=== PATIENT | male | born 1945 | race Caucasian/White ===

== ENCOUNTER 2022-06-10 09:41 | Emergency (ER) | payer OTHER ==
--- OUTSIDE RECORDS SUMMARY | 2022-06-10 09:44 | XMS REPORT | Continuity of Care Document ---
:1945 Author Organization [facility] t Address [address] [address] [place] [address] Care Team Providers Name Role Phone Unknown, Physician Primary Care Physician Unavailable Lata Treviño MD Attending Clinician Payers Payer Name Policy Type Policy Number Effective Date Expiration Date [facility] [id number] 2015 MEDICARE 00:00:00 Problems Condition Condition Condition Status Onset Resolution Last Treating Co mments Source Name Details Category Date Date Treatment Clinician Date Melanoma Melanoma Disease Active [facility] in situ of in situ of 02-10 He alth right right 00:00: upper upper 00 extremity extremity including including shoulder shoulder Allergies, Adverse Reactions, Alerts This patient has no known allergies or adverse reactions. Social History Social Habit Start Date Stop Date Quantity Comments Source Exposure to 2022-02-21 2022-03-03 Not sure [facility] SARS-CoV-2 (event) 00:00:00 13:47:00 Alcohol intake 2022-03-03 2022-03-03 Ex-drinker [facility] 00:00:00 00:00:00 (finding) Tobacco use and 2022-02-10 2022-02-10 Smokeless tobacco [facility] exposure 00:00:00 00:00:00 non-user Sex Ass[birth year] At [birth year] [facility] 00:00:00 00:00:00 Smoking Status Start Date Stop Date Source Never smoked tobacco [facility] Medications Ordered Filled Start Stop Current Ordering Indication Dosage Frequency Signature Comments Components Source Medication Medication Date Date Medication? Clinician (SIG) Name Name primidone 2021-02 Yes 50mg Take 50 mg [facility] (Mysoline) 2-26 by [facility] 50 MG 00:00: every tablet 00 night. primidone 2021-02 Yes 50mg Take 50 mg [facility] (Mysoline) 2-26 by mouth [facility] 50 MG 00:00: every tablet 00 night. primidone 2021-1 Yes 50mg Take 50 mg [facility] (Mysoline) 2-26 by mouth [facility] 50 MG 00:00: every tablet 00 night. primidone 2021-1 Yes 50mg Take 50 mg [facility] (Mysoline) 2-26 by mouth [facility] 50 MG 00:00: every tablet 00 night. atorvastati 2021- Yes 20mg QD Take 20 mg [facility] n (Lipitor) 2-01 by mouth 1 He alth 20 MG 00:00: (one) time tablet 00 each day. atorvastati 2021- Yes 20mg QD Take 20 mg [facility] n (Lipitor) 2-01 by mouth 1 He alth 20 MG 00:00: (one) time tablet 00 each day. atorvastati 2021- Yes 20mg QD Take 20 mg [facility] n (Lipitor) 2-01 by mouth 1 He alth 20 MG 00:00: (one) time tablet 00 each day. atorvastati 2021-02 Yes 20mg QD Take 20 mg [facility] n (Lipitor) 2-01 by mouth 1 He alth 20 MG 00:00: (one) time tablet 00 each day. cephalexin 2021-02 Yes 500mg Q.5D Take 500 [facility] (Keflex) 1-16 mg [facility] 500 MG 00:00: mouth in capsule 00 the morning and 500 mg in the evening. TAKE 1 CAPSULE BY MOUTH TWICE DAILY FOR 10 DAYS. cephalexin 2021- Yes 500mg Q.5D Take 500 [facility] (Keflex) 1-16 mg [facility] 500 MG 00:00: mouth in capsule 00 the morning and 500 mg in the evening. TAKE 1 CAPSULE BY MOUTH TWICE DAILY FOR 10 DAYS. cephalexin 2021-02 Yes 500mg Q.5D Take 500 [facility] (Keflex) 1-16 mg [facility] 500 MG 00:00: mouth in capsule 00 the morning and 500 mg in the evening. TAKE 1 CAPSULE BY MOUTH TWICE DAILY FOR 10 DAYS. cephalexin 2021-02 Yes 500mg Q.5D Take 500 [facility] (Keflex) 1-16 mg [facility] 500 MG 00:00: mouth in capsule 00 the morning and 500 mg in the evening. TAKE 1 CAPSULE BY MOUTH TWICE DAILY FOR 10 DAYS. Vital Signs Vital Name Observation Time Observation Value Comments Source Systolic blood pressure 2022-03-03 20:10:00 150 mm[Hg] [facility] Diastolic blood pressure 2022-03-03 20:10:00 68 mm[Hg] [facility] Heart rate 2022-03-03 20:10:00 111 /min [facility] Body temperature 2022-03-03 20:10:00 36.67 Julissa [facility] height 2022-03-03 20:10:00 166.4 cm [facility] weight 2022-03-03 20:10:00 90.266 [facility] BMI 2022-03-03 20:10:00 32.61 kg/m2 [facility] Systolic blood pressure 2022-02-24 19:33:00 157 mm[Hg] [facility] Diastolic blood pressure 2022-02-24 19:33:00 69 mm[Hg] [facility] Heart rate 2022-02-24 19:33:00 80 /min [facility] Body temperature 2022-02-24 19:33:00 36.11 Julissa [facility] Body height 2022-02-24 19:33:00 166.4 cm [facility] weight 2022-02-24 19:33:00 90.719 kg [facility] BMI 2022-02-24 19:33:00 32.78 kg/m2 [facility] Systolic blood pressure 2022-02-10 18:55:00 154 mm[Hg] [facility] Diastolic blood pressure 2022-02-10 18:55:00 71 mm[Hg] [facility] Heart rate 2022-02-10 18:55:00 71 /min [facility] Body temperature 2022-02-10 18:55:00 36.28 Jul[facility] Body height 2022-02-10 18:55:00 166.4 cm [facility] Body weight 2022-02-10 18:55:00 90.357 [facility] BMI 2022-02-10 18:55:00 32.64 kg/m2 [facility] Oxygen saturation in 2022-02-10 18:55:00 95 /min [facility] Arterial blood by Pulse oximetry Procedures Procedure Date / Time Performed Performing Clinician Sourc e SKIN EXCISION 2022-02-24 21:22:45 Lata Treviño [facility] Encounters Start End Encounter Admission Attending Care Care Encounter Source Date/Time Date/Time Type Type Clinicians Facility Department ID 2022-03-16 Outpatient [facility] [id number] [place] 09:30:32 [id number] [facility] 2022-03-09 Outpatient [facility] [id number] 05:07:22 [id number] [facility] 2022-03-02 Outpatient [facility] [id number] 15:56:15 [id number] [facility] 2022-02-22 Outpatient [facility] [id number] [place] 14:19:53 [id number] [facility] 2022-02-12 Outpatient [facility] [id number] [place] 06:59:34 [id number] [facility] 2022-02-10 Outpatient [facility] [id number] [place] 12:22:53 [id number] [facility] 2022-02-09 Outpatient [facility] [id number] [place] 16:13:00 [id number] [facility] 2022-01-22 Outpatient [facility] [id number] [place] 13:23:24 [id number] [facility] 2022-03-03 2022-03-03 Office [facility]y [facility] [id number] [place] 14:00:00 14:42:21 Visit GARTH Jones [id number] [facility] [place] [facility] [id number] [facility] [id number] 2022-02-24 2022-02-24 Procedure Cristy [facility] [id number] [place] 13:30:00 14:44:35 Visit GARTH Jones [id number] [facility] [place] [facility] [id number] [facility] [id number] 2022-02-17 2022-02-17 Outpatient CRISTY [facility] [id number] [place] 14:30:00 14:30:00 Cruzito JONES 2022-02-10 2022-02-10 Office Cristy [facility]TP [id number] [place] 13:00:00 13:52:17 Visit GARTH Jones [id number] [facility] [place] [facility] [id number] [facility] [id number] Results This patient has no known results.
--- NOTE | 2022-06-10 10:48 | RAD REPORT ---
EXAM DESCRIPTION: RADTib Fib Left06/10/2022 10:12 am CLINICAL HISTORY: Left leg pain status post injury FINDINGS: No fracture is seen Periosteal deposition is present within distal fibula. This likely is chronic and may be related to p rior inflammation or trauma. Follow-up x-ray in 3 months recommended to assess stability.
--- NOTE | 2022-06-10 11:29 | EDPHYS ---
Physician Documentation [facility] Name: Trent Garcia Age: 76 yrs Sex: Male : 1945 Arrival Date: 06/10/2022 Time: 09:41 Bed 10 Private MD: Harriet Anthony ED Physician Jaiem Lance HPI: 06/10 10:04 This 76 yrs old Male presents to ER via Unassigned with complaints of Leg Pain. kb 10:04 The patient presents with pain. The complaints affect the left rodas. Context: The kb problem was sustained at home, resulted from stepping up a step, the patient can fully bear weight, the patient is able to ambulate, Problem is a result from a previous injury: No. Onset: The symptoms/episode began/occurred just prior to arrival. Modifying factors: The symptoms are alleviated by nothing. the symptoms are aggravated by "moving a certain way". Associated signs and symptoms: The patient has no apparent associated signs or symptoms. Treatment prior to arrival includes: no previous treatment. Severity of symptoms: At their worst the symptoms were moderate, in the emergency department the symptoms are unchanged. The patient has not experienced similar symptoms in the past. The patient has not recently seen a physician. Pt states he stepped up a step and felt and heard a pop in left lower leg. States he is able to walk and is free of pain unless he turns his leg in a particular way. . Historical: - Allergies: 10:07 No Known Allergies; aa5 - PMHx: 10:15 None; aa5 - PSHx: 10:15 Right hip; L hip replacement; L arm; L leg; aa5 ROS: 10:05 Constitutional: Negative for fever, chills, and weight loss. kb 10:05 MS/extremity: Positive for pain, of the left rodas. 10:05 All other systems are negative. Exam: 10:05 Constitutional: This is a well developed, well nourished patient who is awake, alert, kb and in no acute distress. Head/Face: Normocephalic, atraumatic. ENT: Moist Mucous membranes Cardiovascular: Regular rate and rhythm with a normal S1 and S2. No gallops, murmurs, or rubs. No pulse deficits. Respiratory: Respirations even and unlabored. No increased work of breathing. Talking in full sentences Skin: Warm, dry with normal turgor. Normal color. MS/ Extremity: Pulses equal, no cyanosis. Neurovascular intact. Full, normal range of motion. Neuro: Awake and alert, GCS 15, oriented to person, place, time, and situation. Moves all extremities. Normal gait. Vital Signs: 10:03 BP 134 / 74; Pulse 78; Resp 18 S; Temp 97.8(TE); Pulse Ox 98% on R/A; aa5 MDM: 09:49 Patient medically screened. kb 10:06 Differential diagnosis: closed fracture, tendonitis, sprain, strain. Data reviewed: kb vital signs, nurses notes. 11:28 Counseling: I had a detailed discussion with the patient and/or guardian regarding: the kb historical points, exam findings, and any diagnostic results supporting the discharge/admit diagnosis, radiology results, the need for outpatient follow up, a orthopedic surgeon, to return to the emergency department if symptoms worsen or persist or if there are any questions or concerns that arise at home. 06/10 09:54 Order name: Tib Fib Left XRAY; Complete Time: 10:50 kb 06/10 11:29 Order name: Shahriar Wrap; Complete Time: 12:17 kb Administered Medications: No medications were administered Disposition: 12:49 Co-signature as Attending Physician, Jaime Lance MD I reviewed the patient's care rn provided by the Advanced Practice Provider and agree with the diagnosis and treatment plan. Disposition Summary: 06/10/22 11:28 Discharge Ordered Location: Home kb Condition: Stable kb Diagnosis - Pain in left lower leg kb Followup: kb - With: Emergency Department - When: As needed - Reason: Worsening of condition Followup: kb - With: Private Physician - When: 2 - 3 days - Reason: Recheck today's complaints, Continuance of care, Re-evaluation by your physician Discharge Instructions: - Discharge Summary Sheet kb - Musculoskeletal Pain kb Forms: - Medication Reconciliation Form kb - Thank You Letter kb - Antibiotic Education kb - Prescription Opioid Use kb Signatures: Dispatcher [employer] Bernadette Shook, HERITAGE CONSULTANT-C HERITAGE CONSULTANT-Jaime Zaman MD MD rn Calderon, Audri RN RN aa5
--- NOTE | 2022-06-10 11:29 | ER ---
Nurse's Notes [facility] Name: Trent Garcia Age: 76 yrs Sex: Male : 1945 Arrival Date: 06/10/2022 Time: 09:41 Bed 10 Private MD: Harriet Anthony Diagnosis: Pain in left lower leg Presentation: 06/10 10:03 Chief complaint: Patient states: felt a pop in left lower leg when walking up steps. aa5 10:03 Coronavirus screen: At this time, the client does not indicate any symptoms associated aa5 with coronavirus-19. Ebola Screen: Patient denies travel to an Ebola-affected area in the 21 days before illness onset. Initial Sepsis Screen: Does the patient meet any 2 criteria? No. Patient's initial sepsis screen is negative. Does the patient have a suspected source of infection? No. Patient's initial sepsis screen is negative. Risk Assessment: Do you want to hurt yourself or someone else? Patient reports no desire to harm self or others. Onset of symptoms was June 10, 2022. 10:03 Acuity: STACEY 4 aa5 10:03 Method Of Arrival: Ambulatory aa5 Historical: - Allergies: 10:07 No Known Allergies; aa5 - PMHx: 10:15 None; aa5 - PSHx: 10:15 Right hip; L hip replacement; L arm; L leg; aa5 Assessment: 10:23 Reassessment: Patient is alert, oriented x 3, equal unlabored respirations, skin aa5 warm/dry/pink. Awaiting x-ray results, pt aware of wait time. Vital Signs: 10:03 BP 134 / 74; Pulse 78; Resp 18 S; Temp 97.8(TE); Pulse Ox 98% on R/A; aa5 ED Course: 09:43 Patient arrived in ED. mr 09:44 Harriet Anthony is Private Physician. mr 09:49 [facility] Tse [facility]C [facility] kb 09:49 Jaime Lance MD is Attending Physician. kb 10:03 Arm band placed on Patient placed in an exam room, on a stretcher. aa5 10:08 Triage completed. aa5 10:14 Tib Fib Left XRAY In Process Unspecified. EDMS 12:17 Adrienne Palacio, RN is Primary Nurse. iw Administered Medications: No medications were administered Outcome: 11:28 Discharge ordered by . kb 12:17 Patient left the ED. iw Signatures: Dispatcher [employer] EDBernadette Ewing, KELLIE MONROE-Lillian Chavez mr Adrienne Palacio, RN RN Alissa Vieira RN RN aa5
[2022-06-10 12:21] VITALS: BP 134/74; TEMP 97.8; O2SAT 98
== END 2022-06-10 12:17 | disposition home or self-care (01) ==
LOC: ER 09:41
DX: M79.662 Pain in left lower leg (principal); Z96.642 Presence of left artificial hip joint
CPT/HCPCS: 99282

== ENCOUNTER 2024-09-30 07:02 | Emergency (ER) | payer OTHER ==
[2024-09-30] MEDS ORDERED: ONDANSETRON 4 MG/2 ML VIAL ONE (07:14)
[2024-09-30] MEDS ORDERED: MORPHINE 4 MG/ML SYR ONE (07:15)
--- OUTSIDE RECORDS SUMMARY | 2024-09-30 07:20 | XMS REPORT | Continuity of Care Document ---
Author Name Unknown Address [address] [facility] [address] [place] [address] [facility] [place] Address [address] [facility] [address] [place] [address] Care Team Providers Care Header Operator Name Role Phone JerryRicky Cassi Primary Care Physician [phone] PUJA GRIFFITH Attending Clinician Unavailable Puja Griffith MD Attending Clinician [phone] Brannon Silva RN Attending Clinician Unavailabl e Doctor Unassigned, [place] Attending Clinician U kayce 2, [facility] Attending Clinician Unavailable Petey Lu MD Attending Clinician [phone] BETTY POWELL Attending Clinician Unavailable Сергей MEYER, Sendadolfo K.H. 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 08-24 00:00: 00 [facility] Acute back pain with sciatica, left Acute back pain with sciatica, left Disease Active 07-16 00:00: 00 [facility] 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 Disease Active 07-16 00:00: 00 [facility] 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 Disease Active 07-16 00:00: 00 [facility] Right hip pain Right hip pain Disease Active 07-16 00:00: 00 [facility] 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 07-16 00:00: 00 [facility] Melanoma in situ of right upper extremity including shoulder Melanoma in situ of right upper extremity including shoulder Disease Active 02-10 00:00: 00 [facility] Allergies, Adverse Reactions, Alerts Allergy Name Allergy Type Status Severity Reaction(s) Onset Date Inactive Date Treating Clinician Comments Source NO KNOWN ALLERGIE S Drug Class Active [facility] Social History Social Habit Start Date Stop Date Quantity Comments Source Gender identity [facility] intake 2022-12-15 00:00:00 2022-12-15 00:00:00 Ex-drinker (finding) [facility] History of Social function 2022-10-28 00:00:00 2022-10-28 00:00:00 [facility] Tobacco use and exposure 2022-10-21 00:00:00 2022-10-21 00:00:00 Smokeless tobacco non-user [facility] Exposure to SARS-CoV-2 (event) 2022-07-06 00:00:00 2022-07-16 08:28:00 Not sure [facility] Sex Assigned At 1945 00:00:00 1945 00:00:00 [facility] Smoking Status Start Date Stop Date Source Never smoked tobacco [facility] Tobacco smoking consumption unknown [facility] Medications Ordered Medication Name Filled Medication Name Start Date Stop Date Current Medication? Ordering Clinician Indication Dosage Frequency Signature (SIG) Comments Components Source FENTanyl PF (SUBLIMAZE (PF)) injection 25 mcg 10-28 14:32: 27 Yes 25ug 25 mcg, Slow IV Push, Q5MIN PRN, 4 doses, Starting on Chayito 10/28/22 at 0932, Until Discontinu ed, Routine, Pain (scale 4-6), PACU [facility] ondansetron (ZOFRAN (PF)) injection 4 mg 10-28 14:32: 27 Yes 4mg 4 mg, Slow IV Push, PRN, 1 dose, Starting on Chayito 10/28/22 at 0932, Until Discontinu ed, Routine, Nausea and Vomiting (N/V), PACU [facility] lidocaine (XYLOCAINE) 2 % jelly URO-JET 10-28 13:20: 00 Yes PRN, Starting on Chayito 10/28/22 at 0820, Until Discontinu ed, Routine, Intra-op [facility] BUPivacaine liposome (PF) (EXPAREL (PF)) 1.3 % (13.3 mg/mL) injection 10-28 13:04: 00 Yes PRN, Starting on Chayito 10/28/22 at 0804, Until Discontinu ed, Routine, Intra-op [facility] bupivacaine (preserv free) 0.5% (SENSORCAIN E MPF) injection 10-28 13:04: 00 Yes PRN, Starting on Chayito 10/28/22 at 0804, Until Discontinu ed, Routine, Intra-op [facility] lactated ringers IV infusion 1,000 mL 10-28 11:30: 00 10-28 11:41 :00 No 1000mL at 42 mL/hr, 1,000 mL, IV Infusion, ONCE, 1 dose, On Chayito 10/28/22 at 0630, Routine, DSU Pre-op [facility] vancomycin (VANCOCIN) 1,000 mg in NaCl 0.9% (NS) 250 mL VIAL-MATE IV piggyback 10-28 11:20: 49 10-28 12:40 :00 No [id number] 1000mg 1,000 mg, IV Piggyback, O.R. HOLDING ONCE, 1 dose, Starting on Chayito 10/28/22 at 0620, Until Chayito 10/28/22 at 2359, Administer over 60 Minutes, 250 mL
Reas on for Anti-Infec tive: Surgical Prophylaxi s
Surgi kori Prophylaxi s: Genitourin kelsie
Dur ation of therapy: within 24 hours of surgery [facility] ibuprofen 600 mg tablet 10-28 00:00: 00 Yes [id number] 600mg Take 1 tablet by mouth every 6 (six) hours as needed (Alternate with Tylenol). [facility] gabapentin 300 mg capsule 10-28 00:00: 00 Yes [id number] 300mg Take 1 capsule by mouth in the morning and 1 capsule at noon and 1 capsule in the evening. [facility] acetaminoph en (TYLENOL 8 HOUR) 650 mg CR tablet 10-28 00:00: 00 Yes [id number] 650mg Take 1 tablet by mouth every 8 (eight) hours as needed for Pain (Alternate with Ibuprofen every 3 hours). [facility] cephALEXin (KEFLEX) 500 mg capsule 10-28 00:00: 00 11-03 04:59 :00 No [id number] 500mg Take 1 capsule by mouth 4 (four) times daily for 5 days. [facility] Nitrofurant oin&Nit. Macrocryst (MACROBID) 100 mg capsule 10-22 00:00: 00 10-28 04:59 :00 No [id number] 100mg Take 1 capsule by mouth in the morning and 1 capsule in the evening. Do all this for 5 days. [facility] alprostadiL (EDEX) injection 25 mcg 08-24 21:45: 00 08-24 21:46 :00 No [id number] 25ug [facility] NaCl 0.9% (NS) injection 6 mL 08-24 21:45: 00 08-24 21:47 :00 No [id number] 6mL [facility] phenylephri ne (VAZCULEP) injection 0.2 mg 08-24 21:45: 00 08-24 21:47 :00 No [id number] .2mg [facility] phenylephri ne (VAZCULEP) injection 0.2 mg 08-24 21:45: 00 08-24 21:47 :00 No [id number] 200ug 0.2 mg (200 mcg), Intravenou s, ONCE, 1 dose, On Tue08/24/22 at 1645, Routine [facility] omeprazole 20 mg capsule 08-11 00:00: 00 Yes [id number] 20mg Take 1 capsule by mouth in the morning. [facility] omeprazole OTC (PriLOSEC OTC) 20 MG EC tablet 07-16 00:00: 00 08-16 04:59 :00 No [id number] 20mg QD Take 1 tablet (20 mg total) by mouth 1 (one) time each day. Do not crush, chew, or split. Take w/ NSAID [facility] Diclofenac Sodium (Voltaren) 1 % external gel 07-16 00:00: 08-16 04:59 :00 No [id number] 3D Apply topically 3 (three) times a day if needed (pain). APPLY 4 GRAMS TO AFFECTED AREA DO NOT EXCEED 16 GRAMS QD [facility] meloxicam (Mobic) 7.5 MG tablet 07-16 00:00: 00 08-16 04:59 :00 No [id number] 7.5mg Take 1 tablet (7.5 mg total) by mouth 1 (one) time each day if needed (pain). [facility] methylPREDN ISolone (Medrol Dospak) 4 MG tablets 07-16 00:00: 00 07-17 04:59 :00 No [id number] 4mg Take 1 tablet (4 mg total) by mouth 1 (one) time for 1 dose. Use as directed by package instructio maisha [facility] primidone 50 mg tablet 06-09 00:00: 00 Yes 50mg Take 1 tablet by mouth at bedtime. [facility] primidone 50 mg tablet 06-09 00:00: 00 Yes 25mg Take 0.5 tablets by mouth in the morning. [facility] atorvastati n 20 mg tablet 05-13 00:00: 00 Yes 20mg Take 1 tablet by mouth in the morning. [facility] tamsulosin 0.4 mg 24 hr capsule 05-13 00:00: 00 Yes .4mg Take 1 capsule by mouth in the morning. [facility] primidone (Mysoline) 50 MG tablet 2021-02 00:00: 00 Yes 50mg Take 50 mg by mouth every night. [facility] atorvastati n (Lipitor) 20 MG tablet 2021-02 00:00: 00 Yes 20mg QD Take 20 mg by mouth 1 (one) time each day. [facility] cephalexin (Keflex) 500 MG capsule 2021-02 00:00: 00 Yes 500mg Q.5D Take 500 mg by mouth in the morning and 500 mg in the evening. TAKE 1 CAPSULE BY MOUTH TWICE DAILY FOR 10 DAYS. [facility] Vital Signs Vital Name Observation Time Observation Value Comments S anibal Systolic blood pressure 2022-12-15 16:45:00 130 mm[Hg] [facility] Diastolic blood pressure 2022-12-15 16:45:00 68 mm[Hg] [facility] Heart rate 2022-12-15 16:45:00 77 /min [facility] acute [facility] Body temperature 2022-12-15 16:45:00 36.56 Julissa [facility] Respiratory rate 2022-12-15 16:45:00 18 /min [facility] Body height 2022-12-15 16:45:00 167.6 cm [facility] Body weight 2022-12-15 16:45:00 83.008 kg [facility] BMI 2022-12-15 16:45:00 29.54 kg/m2 [facility] Oxygen saturation in Arterial blood by Pulse oximetry 2022-12-15 16:45:00 96 /min [facility] Systolic blood pressure 2022-12-01 16:33:00 138 mm[Hg] [facility] Diastolic blood pressure 2022-12-01 16:33:00 89 mm[Hg] [facility] Heart rate 2022-12-01 16:33:00 76 /min [facility] Body temperature 2022-12-01 16:33:00 36.89 Julissa [facility] Respiratory rate 2022-12-01 16:33:00 18 /min [facility] Body height 2022-12-01 16:33:00 167.6 cm [facility] Body weight 2022-12-01 16:33:00 83.008 kg [facility] BMI 2022-12-01 16:33:00 29.54 kg/m2 [facility] Oxygen saturation in Arterial blood by Pulse oximetry 2022-12-01 16:33:00 96 /min [facility] Heart rate 2022-11-03 18:46:00 77 /min [facility] Body temperature 2022-11-03 18:46:00 36.44 Julissa [facility] Respiratory rate 2022-11-03 18:46:00 18 /min [facility] Body height 2022-11-03 18:46:00 167.6 cm [facility] Body weight 2022-11-03 18:46:00 82.101 kg [facility] BMI 2022-11-03 18:46:00 29.21 kg/m2 [facility] Oxygen saturation in Arterial blood by Pulse oximetry 2022-11-03 18:46:00 96 /min [facility] Systolic blood pressure 2022-10-28 17:10:00 135 mm[Hg] [facility] Diastolic blood pressure 2022-10-28 17:10:00 63 mm[Hg] [facility] Heart rate 2022-10-28 17:10:00 71 /min [facility] Respiratory rate 2022-10-28 17:10:00 16 /min [facility] Oxygen saturation in Arterial blood by Pulse oximetry 2022-10-28 17:10:00 98 /min [facility] Body temperature 2022-10-28 14:25:00 36.5 Julissa [facility] Body height 2022-10-28 11:35:00 167.6 cm [facility] Body weight 2022-10-28 11:35:00 82.101 [facility] 2022-10-28 11:35:00 29.21 kg/m2 [facility] Body height 2022-10-28 11:35:00 167.6 cm [facility] Body weight 2022-10-28 11:35:00 82.101 kg [facility] BMI 2022-10-28 11:35:00 29.21 kg/m2 [facility] Systolic blood pressure 2022-10-28 11:32:00 141 mm[Hg] [facility] Diastolic blood pressure 2022-10-28 11:32:00 74 mm[Hg] [facility] Heart rate 2022-10-28 11:32:00 72 [facility]min [facility] Body temperature 2022-10-28 11:32:00 37.06 Julissa [facility] Respiratory rate 2022-10-28 11:32:00 17 /min [facility] Oxygen saturation in Arterial blood by Pulse oximetry 2022-10-28 11:32:00 98 /min [facility] Systolic blood pressure 2022-10-20 19:00:00 137 mm[Hg] [facility] Diastolic blood pressure 2022-10-20 19:00:00 65 mm[Hg] [facility] Heart rate 2022-10-20 19:00:00 71 /min [facility] Body temperature 2022-10-20 19:00:00 36.56 Julissa [facility] Respiratory rate 2022-10-20 19:00:00 18 /min [facility] Body height 2022-10-20 19:00:00 167.6 cm [facility] Body weight 2022-10-20 19:00:00 85.276 kg [facility] BMI 2022-10-20 19:00:00 30.34 kg/m2 [facility] Oxygen saturation in Arterial blood by Pulse oximetry 2022-10-20 19:00:00 96 /min [facility] Body height 2022-10-15 13:49:00 [facility].6 [facility] Body weight 2022-10-15 13:49:00 89.812 [facility] BMI 2022-10-15 13:49:00 [facility] 2022-09-02 20:49:00 134 mm[Hg] [facility] Diastolic blood pressure 2022-09-02 20:49:00 83 mm[Hg] [facility] Heart rate 2022-09-02 20:49:00 77 /min [facility] Body height 2022-09-02 20:49:00 167.6 cm [facility] Body weight 2022-09-02 20:49:00 85.957 kg [facility] BMI 2022-09-02 20:49:00 30.59 kg/m2 [facility] Oxygen saturation in Arterial blood by Pulse oximetry 2022-09-02 20:49:00 97 /min [facility] Systolic blood pressure 2022-08-24 18:58:00 136 mm[Hg] [facility] Diastolic blood pressure 2022-08-24 18:58:00 68 mm[Hg] [facility] Heart rate 2022-08-24 18:58:00 67 /min [facility] Body temperature 2022-08-24 18:13:00 36.67 Julissa [facility] Respiratory rate 2022-08-24 18:13:00 18 /min [facility] Body height 2022-08-24 18:13:00 167.6 cm [facility] Body weight 2022-08-24 18:13:00 82.101 kg [facility] BMI 2022-08-24 18:13:00 29.21 kg/m2 [facility] Oxygen saturation in Arterial blood by Pulse oximetry 2022-08-24 18:13:00 96 /min [facility] BMI 2022-07-16 13:45:00 31.96 kg/m2 [facility] Body height 2022-07-16 13:45:00 167.6 cm [facility] Body weight 2022-07-16 13:45:00 [facility] pressure 2022-07-14 19:34:00 139 mm[Hg] [facility] Diastolic blood pressure 2022-07-14 19:34:00 78 mm[Hg] [facility] Heart rate 2022-07-14 19:34:00 82 /min [facility] Res[facility] rate 2022-07-14 19:34:00 18 /min [facility] Body height 2022-07-14 19:34:00 167.6 cm [facility] Body weight 2022-07-14 19:34:00 84.823 kg [facility] BMI 2022-07-14 19:34:00 30.18 kg/m2 [facility] Oxygen saturation in Arterial blood by Pulse oximetry 2022-07-14 19:34:00 96 /min [facility] Systolic blood pressure 2022-03-03 20:10:00 150 mm[Hg] [facility] Diastolic blood pressure 2022-03-03 20:10:00 68 mm[Hg] [facility] Heart rate 2022-03-03 20:10:00 111 /min [facility] Body temperature 2022-03-03 20:10:00 36.67 Julissa [facility] Body height 2022-03-03 20:10:00 [facility].4 cm [facility] Body weight 2022-03-03 20:10:00 90.266 [facility] BMI 2022-03-03 20:10:00 32.61 kg[facility]m2 [facility] Systolic blood pressure 2022-02-24 19:33:00 157 mm[Hg] [facility] Diastolic blood pressure 2022-02-24 19:33:00 69 mm[Hg] [facility] Heart rate 2022-02-24 19:33:00 80 /min [facility] Body temperature 2022-02-24 19:33:00 36.11 Julissa [facility] Body height 2022-02-24 19:33:00 166.4 cm [facility] Body weight 2022-02-24 19:33:00 90.719 [facility] BMI 2022-02-24 19:33:00 32.78 kg/m2 [facility] Systolic blood pressure 2022-02-10 18:55:00 154 mm[Hg] [facility] Diastolic blood pressure 2022-02-10 18:55:00 71 mm[Hg] [facility] Heart rate 2022-02-10 18:55:00 71 /min [facility] alth Body temperature 2022-02-10 18:55:00 36.28 Julissa [facility] Body height 2022-02-10 18:55:00 166.4 cm [facility] Body weight 2022-02-10 18:55:00 90.357 [facility] BMI 2022-02-10 18:55:00 32.64 kg/m2 [facility] Oxygen saturation in Arterial blood by Pulse oximetry 2022-02-10 18:55:00 95 /min [facility] Procedures Procedure Date / Time Performed Performing Clinician Source POCT URINALYSIS AUTO 2022-12-15 16:48:00 Tomi Griffith [facility] POCT URINALYSIS AUTO 2022-11-03 18:48:00 Tomi Griffith [facility] PENILE PROSTHESIS INSERTION 2022-10-28 12:28:00 Puja Griffith [facility] INSURANCE CORRESPONDENCE 2022-10-21 05:01:00 Regan nunez Unassigned, [place] [facility] INSURANCE CORRESPONDENCE 2022-09-03 05:01:00 Regan nunez Unassigned, [place] [facility] HB ECG ROUTINE & RHYTHM STRIP 2022-09-02 20:43:21 Azar Kimbrough [facility] EXTERNAL PROVIDER - ADC REFERRAL 2022-09-01 05:01:00 Doctor Unassigned, [place] [facility] INSURANCE CORRESPONDENCE 2022-09-01 05:01:00 Regan nunez Unassigned, [place] [facility] INSURANCE CORRESPONDENCE 2022-09-01 05:01:00 Regan nunez Unassigned, [place] [facility] DISCLOSURE AND CONSENT, MEDICAL AND SURGICAL PROCEDURES 2022-08-24 05:01:00 Doctor Unassigned, [place] [facility] CONSENT/REFUSAL FOR DIAGNOSIS AND TREATMENT 2022-07-14 19:17:45 Doctor Unassigned, [place] [facility] POCT URINALYSIS AUTO 2022-07-14 00:00:00 Tomi Griffith [facility] SKIN EXCISION 2022-02-24 21:22:45 Crys Lam [facility] Encounters Start Date/Time End Date/Time Encounter Type Admission Type Attending [facility] Care Department Encounter ID Source 2022-07-18 08:26:51 Outpatient [facility] [id number] [facility] 2022-07-06 09:45:33 Outpatient [facility] [id number] [facility] 2022-03-16 09:30:32 Outpatient [facility] [id number] [facility] 2022-03-09 05:07:22 Outpatient [facility] [id number] [facility] 2022-03-02 15:56:15 Outpatient [facility] [id number] [facility] 2022-02-22 14:19:53 Outpatient [facility] [id number] [facility] 2022-02-12 06:59:34 Outpatient [facility] [id number] [facility] 2022-02-10 12:22:53 Outpatient [facility] [id number] [facility] 2022-02-09 16:13:00 Outpatient [facility] [id number] [facility] 2022-01-22 13:23:24 Outpatient [facility] [id number] [facility] 2022-12-15 10:30:00 2022-12-15 11:10:08 Outpatient PUJA SORTO [facility] [id number] [facility] 2022-12-15 10:30:00 2022-12-15 11:10:08 Office Visit Puja Griffith [facility] [id number] 350.1.13.10 [id number] [id number] [facility] 2022-12-01 10:30:00 2022-12-01 11:51:55 Outpatient [facility] SOR[facility] [id number] [facility] 2022-12-01 10:30:00 2022-12-01 11:51:55 Office Visit Gladis [facility] [employer] 1.2.840.114 350.1.13.10 4.2.7.2.686 [id number] [facility] 2022-11-03 14:00:00 2022-11-03 14:21:02 Outpatient R GLADIS [facility] [id number] [facility] 2022-11-03 14:00:00 2022-11-03 14:21:02 Office Visit Gladis [facility] [employer] [id number] 350.1.13.10 4.2.7.2.686 [id number] [facility] 2022-10-29 00:00:00 2022-10-29 00:00:00 Telephone Gladis [facility] [employer] 1.2.840.114 350.1.13.10 4.2.7.2.686 [id number] [facility] 2022-10-28 06:20:00 2022-10-28 12:42:00 Outpatient R GLADIS [facility] [id number] [facility] 2022-10-28 06:20:00 2022-10-28 12:42:00 Hospital Encounter Gladis [facility] [place] 1.2.840.114 350.1.13.10 4.2.7.2.686 [id number] [facility] 2022-10-28 07:15:00 2022-10-28 [facility]20[facility] [place] 1.2.840.114 350.1.13.10 4.2.7.2.686 [id number] [facility] 2022-10-28 00:00:00 2022-10-28 00:00:00 Telephone Gladis [facility] BUILDING 1.2.840.114 350.1.13.10 4.2.7.2.686 [id number] [facility] 2022-10-22 00:00:00 2022-10-22 00:00:00 Telephone [facility] 1.2.840.114 350.1.13.10 4.2.7.2.686 [id number] [facility] 2022-10-22 00:00:00 2022-10-22 00:00:00 Nurse Triage Brannon Silva [facility] 1.2.840.114 350.1.13.10 4.2.7.2.686 [id number] [facility] 2022-10-21 00:00:00 2022-10-21 00:00:00 Orders Only Doctor Unassigned, [place] [facility] 1.2.840.114 350.1.13.10 4.2.7.2.686 [id number] [facility] 2022-10-20 14:45:00 2022-10-20 15:00:00 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 2, Adc Lab Gladis [facility] BUILDING 1.2.840.114 350.1.13.10 4.2.7.2.686 [id number] [facility] 2022-10-20 13:30:00 2022-10-20 14:31:59 [id number] 2022-10-20 13:30:00 2022-10-20 14:31:59 Office Visit Gladis Puja [facility] [employer] 1.2.840.114 350.1.13.10 4.2.7.2.686 [id number] [facility] 2022-10-19 00:00:00 2022-10-19 00:00:00 Telephone Puja Griffith [facility] 1.2.840.114 350.1.13.10 4.2.7.2.686 [id number] [facility] 2022-10-15 09:00:00 2022-10-15 09:19:34 Office Visit Petey Lu [facility] 1 1.2.840.114 350.1.13.58 9.2.7.2.686 [id number] [facility] 2022-09-10 00:00:00 2022-09-10 00:00:00 Telephone Azar Kimbrough [facility] 1.2.840.114 350.1.13.10 4.2.7.2.686 [id number] [facility] 2022-09-10 00:00:00 2022-09-10 00:00:00 Telephone Azar Kimbrough [facility] 1.2.840.114 350.1.13.10 4.2.7.2.686 [id number] [facility] 2022-09-07 16:00:00 2022-09-07 16:00:00 Outpatient R AZAR KIMBROUGH [facility] [id number] [facility] 2022-09-03 00:00:00 2022-09-03 00:00:00 Orders Only Doctor Unassigned, [place] [facility] 1.2.840.114 350.1.13.10 4.2.7.2.686 [id number] [facility] 2022-09-02 15:30:00 2022-09-02 16:23:20 [facility] 1.284.114 350.1.13.10 4.2.7.2.686 [id number] [facility] 2022-09-02 15:30:00 2022-09-02 16:23:20 Outpatient R AZAR KIMBROUGH [facility] [id number] [facility] 2022-09-01 10:00:00 2022-09-01 10:00:00 Outpatient R KIMBROUGH [facility] [id number] [facility] 2022-09-01 00:00:00 2022-09-01 00:00:00 Orders Only Doctor Unassigned, [place] [facility] 1.840.114 350.1.13.10 4.2.7.2.686 [id number] [facility] 2022-08-24 13:30:00 2022-08-24 14:19:25 Outpatient R [facility] [id number] [facility] 2022-08-24 13:30:00 2022-08-24 14:19:25 [facility] 1.84.114 350.1.13.10 4.2.7.2.686 [id number] [facility] 2022-08-24 00:00:00 2022-08-24 00:00:00 Orders Only Doctor Unassigned, [place] [facility] 1.2.114 350.1.13.10 4.2.7.2.686 [id number] [facility] 2022-07-16 08:30:00 2022-07-16 10:10:08 Outpatient [facility] [id number] [facility] 2022-07-16 00:00:00 2022-07-16 10:09:58 Outpatient [facility] [id number] [facility] 2022-07-16 09:00:00 2022-07-16 09:44:33 Office Visit Petey Lu [facility] 1 1.2.840.114 350.1.13.58 9.2.7.2.686 [id number] [facility] 2022-07-14 14:30:00 2022-07-14 15:20:47 [facility] 1.2.840.114 350.1.13.10 4.2.7.2.686 [id number] [facility] 2022-07-14 14:30:00 2022-07-14 15:20:47 [facility] [id number] 2022-07-14 00:00:00 2022-07-14 00:00:00 Orders Only Doctor Unassigned, [place] [facility] 1.2.840.114 350.1.13.10 4.2.7.2.686 [id number] [facility] 2022-03-03 14:00:00 2022-03-03 14:42:21 Office Visit Crys King [facility] 1.2.840.114 350.1.13.58 9.2.7.2.686 [id number] [facility] 2022-02-24 13:30:00 2022-02-24 14:44:35 Procedure Visit Crys King [facility] 1.2.840.114 350.1.13.58 9.2.7.2.686 [id number] [facility] 2022-02-17 14:30:00 2022-02-17 14:30:00 Outpatient CRYS [facility] [id number] [facility] 2022-02-10 13:00:2022-02-10 13:52:17 Office Visit Crys King [facility] 1.2.840.114 350.1.13.58 9.2.7.2.686 [id number] [facility] Results Test Description Test Time Test Comments Results Result Co mments Source [facility] URINALYSIS, [id number] 16:49:00 * Test Item Value Reference Range Interpretation Comme nts POCT U SP GRAV (test code = 3255) 1.020 mg/dl 1.005-1.025 POCT PH U (test code = 3254) 6.0 mg/dl 5-8 POCT U LEUK EST (test code = 3263) Negative Negative - Negative POCT U NIT (test code = 3262) Negative Negative - Negati ve POCT U PROT (test code = 3259) Negative Negative - Negative POCT U GLU (test code = 3256) Negative Negative - Negati ve POCT U KETONE (test code = 3258) Negative Negative - Negative POCT U UROBILI (test code = 3260) 0.2 mg/dl 0.2-1 POCT U BILI (test code = 3261) Negative Negative - Negative POCT U BLD (test code = 3257) Negative Negative - Negati ve POCT U COLOR (test code = 3266) Yellow POCT U APPEAR (test code = 3267) Clear [facility] URINALYSIS, [id number] 18:49:00 * Test Item Value Reference Range Interpretation Comme nts POCT U SP GRAV (test code = 3255) 1.015 mg/dl 1.005-1.025 POCT PH U (test code = 3254) 7.0 mg/dl 5-8 POCT U LEUK EST (test code = 3263) negative Negative - Negative POCT U NIT (test code = 3262) negative Negative - Negati ve POCT U PROT (test code = 3259) negative Negative - Negative POCT U GLU (test code = 3256) negative Negative - Negati ve POCT U KETONE (test code = 3258) negative Negative - Negative POCT U UROBILI (test code = 3260) 1.0 mg/dl 0.2-1 POCT U BILI (test code = 3261) negative Negative - Negative POCT U BLD (test code = 3257) negative Negative - Negati ve POCT U COLOR (test code = 3266) yellow POCT U APPEAR (test code = 3267) clear [facility] URINALYSIS, [id number] 18:49:00 * Test Item Value Reference Range Interpretation Comme nts POCT U SP GRAV (test code = 3255) 1.015 mg/dl 1.005-1.025 POCT PH U (test code = 3254) 7.0 mg/dl 5-8 POCT U LEUK EST (test code = 3263) negative Negative - Negative POCT U NIT (test code = 3262) negative Negative - Negati ve POCT U PROT (test code = 3259) negative Negative - Negative POCT U GLU (test code = 3256) negative Negative - Negati ve POCT U KETONE (test code = 3258) negative Negative - Negative POCT U UROBILI (test code = 3260) 1.0 mg/dl 0.2-1 POCT U BILI (test code = 3261) negative Negative - Negative POCT U BLD (test code = 3257) negative Negative - Negati ve POCT U COLOR (test code = 3266) yellow POCT U APPEAR (test code = 3267) clear [facility] URINALYSIS, [id number] 19:39:00 * Test Item Value Reference Range Interpretation Comme nts POCT U SP GRAV (test code = 3255) 1.030 mg/dl 1.005-1.025 A POCT PH U (test code = 3254) 5.5 mg/dl 5-8 POCT U LEUK EST (test code = 3263) neg Negative - Negative POCT U NIT (test code = 3262) neg Negative - Negati ve POCT U PROT (test code = 3259) neg Negative - Negative POCT U GLU (test code = 3256) neg Negative - Negati ve POCT U KETONE (test code = 3258) neg Negative - Negative POCT U UROBILI (test code = 3260) 0.2 mg/dl 0.2-1 POCT U BILI (test code = 3261) neg Negative - Negative POCT U BLD (test code = 3257) neg Negative - Negati ve POCT U COLOR (test code = 3266) yellow POCT U APPEAR (test code = 3267) clear Lab Interpretation (test cod e = [id number]) [facility] [id number] 19:39:00 * Test Item Value Reference Range Interpretation Comme nts POCT U SP GRAV (test code = 3255) 1.030 mg/dl 1.005-1.025 A POCT PH U (test code = 3254) 5.5 mg/dl 5-8 POCT U LEUK EST (test code = 3263) neg Negative - Negative POCT U NIT (test code = 3262) neg Negative - Negati ve POCT U PROT (test code = 3259) neg Negative - Negative POCT U GLU (test code = 3256) neg Negative - Negati ve POCT U KETONE (test code = 3258) neg Negative - Negative POCT U UROBILI (test code = 3260) 0.2 mg/dl 0.2-1 POCT U BILI (test code = 3261) neg Negative - Negative POCT U BLD (test code = 3257) neg Negative - Negati ve POCT U COLOR (test code = 3266) yellow POCT U APPEAR (test code = 3267) clear Lab Interpretation (test cod e = [id number]) Abnormal [facility] Notes Date/Time Note Provider Source 2022-10-22 16:38:00 Formatting of this n ote might be different from the original. Regarding: [id number], 77y/m, [employer] did not get called in, it is in the system already, no answer clinic ----- Message from Saadia More sent at 10/22/2022 4:37 PM CDT ----- Hazel Garcia is a 77 year old male Please call in [employer] to: [facility] [address] [place] [id number] Brannon Silva RN [facility] 2022-10-22 16:38:00 Formatting of this n ote might be different from the original. Hazel Garcia is a 77 year old male Attempted to call patient x 2 to inform that his prescription for Macrobid was called in to the pharmacy. Message left on identified VM to inform. Brannon ZHANG, RN [facility] Access Center Reason for Disposition Message left on identified voice mail Protocols used: No Contact or Duplicate Contact [id number] [facility] 2022-10-22 11:40:27 Formatting of this n ote might be different from the original. Patient notified of results/recommendations, understanding was verbalized via teach back. Sena Michaud RN [facility] 2022-10-22 08:13:39 Formatting of this n ote might be different from the original. Attempted to contact patient with no answer, Voicemail left at this time with clinic phone number and instructed patient to return call. Sena Michaud RN [facility] 2022-10-22 07:23:09 Formatting of this n ote might be different from the original. Contaminated urine culture Oral abx 5 days Repeat Ucx Tuesday10/25/[address] [facility] 2022-10-20 14:45:00 Formatting of this n ote is different from the original. Images from the original note were not included. Venipuncture collection performed by clean technique on the left anticubitus. Total of 1 attempts were made. Slight pressure and a bandage/dressing were applied to the site(s). The patient experienced no complications. The following specimens were processed according to instructions and sent to [facility] laboratories per lab order on 10/20/2022 : LT BLUE SST 1 RED LAV 1 PPT DK GREEN (LiHep) DK GREEN (SodH) MIRAMONTES DK BLUE (K2) DK BLUE (S) ACD Blood Culture NIPT/NTD [facility] 2022-10-19 13:58:29 Addended by: SENA MICHAUD RN on: 10/19/2022 01:58 PM Modules accepted: Orders Sena Michaud RN [facility] 2022-10-19 13:57:30 Formatting of this n ote might be different from the original. Patient has appointment 10/20/22 at 3:00- instructions added to appointment note. [facility] 2022-10-19 12:53:42 Addended by: PUJA GRIFFITH on: 10/19/2022 12:53 PM Modules accepted: Orders [facility] 2022-10-19 11:49:34 Formatting of this n ote might be different from the original. I called patient, confirmed that he still wishes to proceed with IPP 10/28/2022 No recent significant changes He is not taking steroids Plan RTC [place] tomorrow for Ucx and pre op instructions Labs, orders placed Hibiclens three days pre op to scrub genital area for [address] [facility] 2022-09-10 15:49:44 Formatting of this n ote might be different from the original. Spoke with patient and notified him that Dr. Kimbrough cleared him for his surgery and sent over his clearance to his urologist. Patient verbalized understanding with no further questions Shital Ho MA [facility] 2022-09-10 15:15:23 Formatting of this n ote might be different from the original. I have updated the last office note indicating he may proceed with the procedure under moderate cardiac risk. I have sent his last office note to his urologist. IM-CARDIOVASCULAR DISEASE STAFF [facility] 2022-09-10 14:41:06 Formatting of this n ote might be different from the original. Patient called stating that the insurance denied the echo PA . He would like to know if this is something he is needing or can it wait. [facility] 2022-09-10 10:57:30 Formatting of this n ote might be different from the original. Received a denial for Event monitor will put in Dr. Kimbrough ADC folder for review. [facility]
[2024-09-30 08:04] LABS: Absolute Lymphocytes (CBC) 1.4 K/uL (0.7-4.9); Hematocrit 45.6 % (39.6-49.0); Hemoglobin 15.3 g/dL (13.6-17.9); MCH 29.8 pg (27.0-35.0); MCHC 33.5 g/dL (32.0-36.0); MCV 88.9 fL (80-100); MPV 8.6 fL (7.6-11.3); Nucleated RBC Absolute Count 0.0 (0-0); Nucleated Red Blood Cells % 0.0 % (0-0); RBC Red Blood Cell Count 5.13 M/uL (4.33-5.43); White Blood Count 5.80 thou/uL (4.3-10.9)
[2024-09-30 08:08] LABS: PT Prothrombin Time 11.9 SECONDS (10-13.0); PTT, Activated Partial Thromb 30.1 SECONDS (27.2-37.4); Protime INR 1.05
[2024-09-30 08:13] LABS: Anion Gap 8.0 mEq/L (5.0-15.0); BUN Blood Urea Nitrogen 13.0 mg/dL (7-18); Glucose Level 132.0 mg/dL (74-106); Potassium 4.0 mEq/L (3.5-5.1)
--- NOTE | 2024-09-30 09:05 | RAD REPORT ---
EXAM: Chest Abdomen Pelvis W Cont CLINICAL INDICATION: Chest and abdominal pain status post fall TECHNIQUE: CT chest, abdomen and pelvis was performed, with 100 cc Isovue-300 IV contrast, as per de partment protocol. Axial, sagittal and coronal reconstructions were obtained. One or more of the following dose reduction techniques were used: Automated exposure control, adjustment of the mA and/o r kV according to the patient size, and/or iterative reconstruction. Unless otherwise specified, incidental findings do not require dedicated imaging follow-up. [id number]. Oral contrast not given. This limits evaluation of the bowel. COMPARISON: None FINDINGS: A pulmonary contusion not seen. No mediastinal hematoma noted No pleural effusion.. No pericardial effusion 3.9 x 1.7 cm low-density area posterior segment right lobe of the liver may represent a subcapsular h ematoma. No intraparenchymal hematoma. No hemoperitoneum. The spleen, pancreas, adrenals and kidneys do not demonstrate a traumatic injury. Small right renal cyst. Several left renal cysts. Largest 5.7 cm. Left renal calculus. 15 mm calculus within the bladder. Prostate gland mildly to moderately enlarged. Post surgical changes involve the hips. No evidence of diverticulitis. Significant atrophy of musculature left hip. Penile implant IMPRESSION: 3.9 x 1.7 cm low-density area posterior segment right lobe of the liver in the setting of trauma prob ably a subcapsular hematoma. No intraparenchymal hematoma. No hemoperitoneum. No evidence of active bleeding. This would be considered grade 1
--- NOTE | 2024-09-30 11:30 | RAD REPORT ---
EXAMINATION: Ultrasound of the liver CLINICAL HISTORY: trauma, eval/rule out hematoma COMPARISON: CT abdomen September 30, 2024 FINDINGS: Evaluation of the inferior aspect of the right lower lobe is suboptimal . However, there is a subtle 3.9 x 1.7 cm hypoechoic area along the lateral aspect inferior portion right lobe of the liver. This likely corresponds to the CT abnormality. No free fluid within Morison's pouch. IMPRESSION: 3.9 x 1.7 cm subtle hypoechoic area lateral aspect posterior segment right lobe of the liver. This ma y represent a small subcapsular hematoma of indeterminate age and should be correlated clinically. Examination discussed with
--- NOTE | 2024-09-30 11:43 | ER ---
Nurse's Notes [facility] Name: Trent Garcia Age: 79 yrs Sex: Male : 1945 Arrival Date: 09/30/2024 Time: 07:02 Bed 8 Private MD: Diagnosis: Contusion of left front wall of thorax Presentation: 09/30 07:17 Chief complaint: Patient states: tripped and fell Tuesday night, landed on some plastic iw boxes , pain to left ribs. 07:18 Coronavirus screen: At this time, the client does not indicate any symptoms associated iw with coronavirus-19. Ebola Screen: No symptoms or risks identified at this time. Initial Sepsis Screen: Does the patient meet any 2 criteria? No. Patient's initial sepsis screen is negative. Does the patient have a suspected source of infection? No. Patient's initial sepsis screen is negative. Risk Assessment: Do you want to hurt yourself or someone else?. Onset of symptoms was September 28, 2024. 07:18 Acuity: STACEY 3 iw 07:18 Method Of Arrival: Ambulatory iw Historical: - Allergies: 07:20 No Known Allergies; iw - Home Meds: 07:20 tamsulosin 0.4 mg oral capsule daily [Active]; primidone 50 mg Oral tablet 2 times per iw day [Active]; atorvastatin 20 mg oral tablet daily [Active]; levothyroxine 50 mcg tablet daily [Active]; [place]-3 Fish Oil 300-1,000 mg oral capsule daily [Active]; - PMHx: 07:30 None; aa5 - PSHx: 07:20 L arm; L hip replacement; L leg; Right hip; iw - Immunization history:: Adult Immunizations up to date. - Infectious Disease History:: Denies. - Family history:: not pertinent. - Social history:: Smoking status: Patient denies any tobacco usage or history of. - Hospitalizations: : No recent hospitalization is reported. Screenin:20 [facility] ED Fall Risk Assessment (Adult) History of falling in the last 3 months, aa5 including since admission Yes- single mechanical fall (1 pt) Confusion or Disorientation No (0 pts) Intoxicated or Sedated No (0 pts) Impaired Gait No (0 pts) Mobility Assist Device Used No (0 pt) Altered Elimination No (0 pt) Score/Fall Risk Level 0 - 2 = Low Risk Oriented to surroundings, Maintained a safe environment, Educated pt \T\ family on fall prevention, incl call for assistance when getting out of bed, Assessed \T\ reinforced patient's understanding of fall precautions. Abuse screen: Denies threats or abuse. Nutritional screening: No deficits noted. Tuberculosis screening: No symptoms or risk factors identified. Assessment: 07:20 General: Appears comfortable, Behavior is calm, cooperative. Pain: Complains of pain in aa5 left lower rib cage Pain does not radiate. Pain currently is 9 out of 10 on a pain scale. Quality of pain is described as sharp, shooting, Pain began 2-3 days ago. Is intermittent, Aggravated by increased activity, repositioning, Noted to be resistant to movement. Neuro: Level of Consciousness is awake, alert, obeys commands, Oriented to person, place, time, situation. Cardiovascular: Heart tones S1 S2 present Patient's skin is warm and dry. Rhythm is regular. Respiratory: Airway is patent Respiratory effort is even, unlabored, Respiratory pattern is regular, symmetrical. GI: Abdomen is round non-distended, Abd is soft and non tender X 4 quads. : No signs and/or symptoms were reported regarding the genitourinary system. EENT: No signs and/or symptoms were reported regarding the EENT system. Derm: Skin is pink, warm \T\ dry. Bruising that is green, yellow, on left side of diaphragm. Musculoskeletal: Range of motion: intact in all extremities. 07:50 Reassessment: Patient is alert, oriented x 3, equal unlabored respirations, skin aa5 warm/dry/pink. 08:27 Reassessment: Patient is alert, oriented x 3, equal unlabored respirations, skin aa5 warm/dry/pink. 09:50 Reassessment: US at bedside . aa5 11:20 Reassessment: Patient is alert, oriented x 3, equal unlabored respirations, skin aa5 warm/dry/pink. Patient states feeling better. 11:21 Reassessment: Urinal provided for elimination needs. . aa5 12:05 Reassessment: Patient is alert, oriented x 3, equal unlabored respirations, skin aa5 warm/dry/pink. Pt given incentive spirometer and educated on use and importance, pt verbalized understanding. . Vital Signs: 07:18 BP 161 / 79; Pulse 65; Resp 18; Temp 98.1(O); Pulse Ox 97% on R/A; Weight 78.02 kg; iw Height 5 ft. 5 in. ; Pain 9/10; 08:27 BP 120 / 72; Pulse 61; Resp 18 S; Pulse Ox 98% on R/A; aa5 10:10 BP 123 / 73; Pulse 55; Resp 18; Pulse Ox 98% ; kn 11:45 BP 127 / 73; Pulse 56; Resp 18; Temp 98; Pulse Ox 98% ; kn 07:18 Body Mass Index 28.62 (78.02 kg, 165.1 cm) iw 07:18 Pain Scale: Adult iw ED Course: 07:05 Patient arrived in ED. ts1 07:05 Jaime Lance MD is Attending Physician. rn 07:13 Alissa Meeks, EILEEN is Primary Nurse. aa5 07:20 Triage completed. iw 07:21 Arm band placed on. iw 07:35 Patient has correct armband on for positive identification. Bed in low position. Call aa5 light in reach. Side rails up X2. Adult w/ patient. Client placed on continuous cardiac and pulse oximetry monitoring. NIBP monitoring applied. monitoring tech on. Pulse ox on. NIBP on. 07:35 Initial lab(s) drawn, by ED staff, sent to lab. Inserted saline lock: 20 gauge in right aa5 antecubital area, using aseptic technique. Blood collected. Flushed with 10 mL NS. 08:37 No provider procedures requiring assistance completed. aa5 08:46 CT Chest, Abdomen, Pelvis - W/Contrast In Process Unspecified. EDMS 10:12 US Liver Only In Process Unspecified. EDMS 11:02 Hemoglobin Sent. nh2 11:43 Juan Luo MD is Referral Physician. rn 12:05 IV discontinued, intact, bleeding controlled, No redness/swelling at site. Pressure kn dressing applied. 12:08 Provided Education on: use of call light, plan of care. pt verbalizes understanding.. kn Administered Medications: 07:38 Drug: Ondansetron IVP 4 mg IVP once; over 2 minutes Route: IVP; Site: right antecubital;aa5 07:50 Follow up: Response: No adverse reaction aa5 07:40 Drug: morphine IVP or IV 2 mg IVP once over 4 mins Route: IVP; Infused Over: 4 mins; aa5 Site: right antecubital; 08:29 Follow up: Response: No adverse reaction aa5 07:46 Drug: morphine IVP or IV 2 mg IVP once over 4 mins Route: IVP; Infused Over: 4 mins; aa5 Site: right antecubital; 07:50 Follow up: Response: No adverse reaction aa5 Medication: 08:36 VIS not applicable for this client. aa5 Outcome: 11:43 Discharge ordered by MD. prather 12:05 Discharged to home ambulatory, with family, jasmina 12:05 Condition: stable 12:05 Discharge instructions given to patient, 12:08 Patient left the ED. kn Signatures: Dispatcher [employer] EDAdrienne Reyes RN RN Jaime Villarreal MD MD rn Calderon, Audri RN RN aa5 Cherie Bhagat PAS PAS ts1 REYNOLD URIBE RN RN kn Brennan Mcgraw Jr RN RN nh2
--- NOTE | 2024-09-30 11:43 | EDPHYS ---
Physician Documentation [facility] Name: Trent Garcia Age: 79 yrs Sex: Male : 1945 Arrival Date: 09/30/2024 Time: 07:02 Bed 8 Private MD: ED Physician Jaime Lance HPI: 09/30 07:13 This 79 yrs old Male presents to ER via Unassigned with complaints of Fall Injury, rn Shortness Of Breath. 07:13 Pt reports fall from standing, landed on plastic containers, injured left ribs. rn Happened yesterday. Worsening pain today. Hurts to move and breathe. No hemoptysis. Does not take blood thinners. No other injury. . Historical: - Allergies: 07:20 No Known Allergies; iw - Home Meds: 07:20 tamsulosin 0.4 mg oral capsule daily [Active]; primidone 50 mg Oral tablet 2 times per iw day [Active]; atorvastatin 20 mg oral tablet daily [Active]; levothyroxine 50 mcg tablet daily [Active]; [place]-3 Fish Oil 300-1,000 mg oral capsule daily [Active]; - PMHx: 07:30 None; aa5 - PSHx: 07:20 L arm; L hip replacement; L leg; Right hip; iw - Immunization history:: Adult Immunizations up to date. - Infectious Disease History:: Denies. - Family history:: not pertinent. - Social history:: Smoking status: Patient denies any tobacco usage or history of. - Hospitalizations: : No recent hospitalization is reported. ROS: 07:13 Constitutional: Negative for fever, chills, and weight loss, Eyes: Negative for injury, rn pain, redness, and discharge, Neck: Negative for injury, pain, and swelling, Cardiovascular: + left sided chest pain/rib pain Respiratory: + pain with inspiration, negative for cough Abdomen/GI: Negative for abdominal pain, nausea, vomiting, diarrhea, and constipation, Back: Negative for injury and pain, MS/Extremity: Negative for injury and deformity, Skin: Negative for injury, rash, and discoloration, Neuro: Negative for headache, weakness, numbness, tingling, and seizure, Exam: 07:13 Constitutional: This is a well developed, well nourished patient who is awake, alert, groover and turner, splinting left chest with hand. Head/Face: Normocephalic, atraumatic. Neck: NO midline cervical tenderness Chest/axilla: + tenderness left anterior/lateral ribs with linear ecchymosis. No crepitus Cardiovascular: Regular rate and rhythm. No pulse deficits. Respiratory: No increased work of breathing, no retractions or nasal flaring. Abdomen/GI: Soft, non-tender MS/ Extremity: Pulses equal, no cyanosis. Neuro: Awake and alert, GCS 15 Vital Signs: 07:18 BP 161 / 79; Pulse 65; Resp 18; Temp 98.1(O); Pulse Ox 97% on R/A; Weight 78.02 kg; iw Height 5 ft. 5 in. ; Pain 9/10; 08:27 BP 120 / 72; Pulse 61; Resp 18 S; Pulse Ox 98% on R/A; aa5 10:10 BP 123 / 73; Pulse 55; Resp 18; Pulse Ox 98% ; kn 11:45 BP 127 / 73; Pulse 56; Resp 18; Temp 98; Pulse Ox 98% ; kn 07:18 Body Mass Index 28.62 (78.02 kg, 165.1 cm) iw 07:18 Pain Scale: Adult iw MDM: 07:06 Medical Screening Exam initiated rn 10:21 Management of patient was discussed with the following: Saw Cleaner: Discussed CT rn findings with Dr. Luo, will obtain ultrasound and repeat hemoglobin as is unexpected finding. All of trauma and pain areas to left ribs, no tenderness right upper quadrant or right liver. This is possibly incidental finding and not true subcapsular hematoma.. 11:41 Differential diagnosis: abrasion, closed head injury, contusion, fracture. Data rn reviewed: vital signs, nurses notes, lab test result(s), radiologic studies, CT scan, ultrasound, and as a result, I will discharge patient. Consideration of Admission/Observation Escalation of care including admission/observation considered. Independent interpretation of the following test(s) in the Emergency Department CT Scan: My interpretation is CT chest abdomen pelvis images negative for pneumothorax or pneumoperitoneum per my interpretation. Counseling: I had a detailed discussion with the patient and/or guardian regarding the historical points, exam findings, and any diagnostic results supporting the discharge/admit diagnosis, lab results, radiology results, the need for outpatient follow up, to return to the emergency department if symptoms worsen or persist or if there are any questions or concerns that arise at home. Response to treatment: the patient's symptoms have markedly improved after treatment, and as a result, I will discharge patient. Special discussion: I discussed with the patient/guardian in detail that at this point there is no indication for admission to the hospital. It is understood, however, that if the symptoms persist or worsen the patient needs to return immediately for re-evaluation. ED course: Ultrasound shows nonspecific fluid and age indeterminant fluid collection, possible old hematoma. Repeat hemoglobin is stable and normal. Discussed results with Dr. Luo and is comfortable discharging and following up in clinic for outpatient MRI and further evaluation. Had long discussion with patient and family regarding what not to do with bruised ribs to minimize chance of pneumonia in the near future. All questions answered. I have personally reviewed all of the results, including but not limited to blood tests and imaging deemed necessary to safely discharge this patient at this time. All results given to and printed out for patient. I personally went over all the results with the patient and answered all questions. Patient will follow-up with PCP and or specialist as discussed. Return precautions given and understood.. 09/30 07:20 Order name: CBC with Diff; Complete Time: 08: rn 09/30 07:20 Order name: Basic Metabolic Panel; Complete Time: 08: rn 09/30 07:20 Order name: Protime (+inr); Complete Time: 08: rn 09/30 07:20 Order name: Ptt, Activated; Complete Time: 08: rn 09/30 10:17 Order name: Hemoglobin; Complete Time: 11:13 rn 09/30 07:13 Order name: INCENTIVE SPIROMETRY rn 09/30 07:21 Order name: CT Chest, Abdomen, Pelvis - W/Contrast; Complete Time: 09:08 rn 09/30 09:33 Order name: US Liver Only; Complete Time: 11:33 rn 09/30 07:12 Order name: IV Start; Complete Time: rn 09/30 07:13 Order name: Cardiac monitoring; Complete Time: rn 09/30 07:13 Order name: O2 Sat Monitoring; Complete Time: :43 rn Administered Medications: 07:38 Drug: Ondansetron IVP 4 mg IVP once; over 2 minutes Route: IVP; Site: right antecubital;aa5 07:50 Follow up: Response: No adverse reaction aa5 07:40 Drug: morphine IVP or IV 2 mg IVP once over 4 mins Route: IVP; Infused Over: 4 mins; aa5 Site: right antecubital; 08:29 Follow up: Response: No adverse reaction aa5 07:46 Drug: morphine IVP or IV 2 mg IVP once over 4 mins Route: IVP; Infused Over: 4 mins; aa5 Site: right antecubital; 07:50 Follow up: Response: No adverse reaction aa5 Disposition Summary: 09/30/24 11:43 Discharge Ordered Notes: Location: Home rn Problem: new rn Symptoms: have improved rn Condition: Stable rn Diagnosis - Contusion of left front wall of thorax rn Followup: rn - With: Juan Luo MD - When: 5 - 6 days - Reason: Recheck today's complaints, Re-evaluation by your physician Discharge Instructions: - Discharge Summary Sheet rn - Rib Contusion rn - How to Use an Incentive Spirometer rn Forms: - Medication Reconciliation Form rn - 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 EDMS EDMS 10:18 10:18 Hemoglobin+H.LAB.BRZ ordered. EDMS EDMS
[2024-09-30 12:26] VITALS: O2SAT 98
[2024-09-30 12:30] VITALS: BP 127/73; TEMP 98
== END 2024-09-30 12:08 | disposition home or self-care (01) ==
LOC: ER 07:02
DX: S20.212A Contusion of left front wall of thorax, initial encounter (principal); W18.30XA Fall on same level, unspecified, initial encounter
CPT/HCPCS: 85025; 80048; 36415; 85610; 85730; 85018; 71260; 74177; 76705; 96375; 96374; 99285; Q9967; J2405